=== PATIENT | female | born 2000 | race Caucasian/White ===

== ENCOUNTER 2022-11-21 05:30 | Inpatient (IN) | payer BC, OTHER ==
[2022-11-21 06:27] VITALS: BMI 29.9
[2022-11-21] MEDS: Lactated Ringer's 1,000 ML IV SCH ×2 (07:00→12:00)
[2022-11-21] MEDS ORDERED: Tranexamic Acid 1,000 MG/10 ML VIAL IVP PRN (07:42)
[2022-11-21] MEDS ORDERED: Lidocaine 1% (PF) 30 ML VIAL SC PRN (07:42)
[2022-11-21] MEDS ORDERED: Ibuprofen 800 MG TAB PO PRN (07:42)
[2022-11-21] MEDS ORDERED: Misoprostol 200 MCG TAB PR PRN (07:42)
[2022-11-21] MEDS ORDERED: Ondansetron PF 4 MG/2 ML Vial IVP PRN ×3 (07:42→20:24)
[2022-11-21] MEDS ORDERED: HYDROcodone/Acetaminophen 5/325 mg Tablet PO PRN (07:42)
[2022-11-21] MEDS ORDERED: Acetaminophen 500 MG TAB PO PRN (07:42)
[2022-11-21] MEDS ORDERED: Promethazine HCl 25 MG/ML VIAL IM PRN ×3 (07:42→20:24)
[2022-11-21] MEDS ORDERED: Methylergonovine 0.2 MG/ML VIAL IM PRN (07:42)
[2022-11-21] MEDS ORDERED: fentaNYL 50 mcg/mL 1 mL Vial SLOW IVP PRN (07:42)
[2022-11-21] MEDS ORDERED: Diphenoxylate HCl/Atropine Tablet PO PRN (07:42)
[2022-11-21] MEDS ORDERED: Carboprost 250 MCG/ML AMP IM PRN (07:42)
[2022-11-21] MEDS ORDERED: hydrALAZINE 20 MG/ML VIAL SLOW IVP PRN ×2 (07:42→20:24)
[2022-11-21] MEDS ORDERED: NS w/ Oxytocin 30 units 500 ML IV SCH ×3 (07:45)
[2022-11-21] MEDS ORDERED: NS w/ Oxytocin 30 units 500 ML ONE (07:56)
[2022-11-21 08:10] LABS: Hematocrit 34.2 % (34.9-44.5); Hemoglobin 11.8 g/dL (12.0-15.5); Mean Corpuscular HGB CONC 34.5 g/dL (32.0-36.0); Mean Corpuscular Volume 92.7 fl (81.6-98.3); Mean Platelet Volume 11.1 fl (7.4-10.4); Platelet Count 429 10x3/uL (150-450); Red Blood Cell (RBC) Count 3.69 10x6/uL (3.90-5.03); White Blood Cell (WBC) Count 11.9 10x3/uL (3.5-10.5)
[2022-11-21 08:34] LABS: HBSAg Index 0.26 S/CO (0-0.99); Hep B Surf Ag - L&D Non-Reactive S/CO (NonReactive); Syphilis Antibody Nonreactive (Nonreactive); Syphilis Antibody Index 0.04 S/CO (<1.00 Non-Reactive)
[2022-11-21] MEDS ORDERED: diphenhydrAMINE 50 MG/ML VIAL IVP PRN (08:49)
[2022-11-21] MEDS ORDERED: Acetaminophen 325 MG TAB PO PRN (08:49)
[2022-11-21] MEDS ORDERED: Moisturizing Cream (Eucerin) 113 GM JAR TOP PRN (08:49)
[2022-11-21] MEDS ORDERED: Naloxone HCl 0.4 mg/ml Vial IVP PRN ×2 (08:49)
[2022-11-21] MEDS ORDERED: Lactated Ringer's 500 ML IV PRN (08:49)
[2022-11-21] MEDS ORDERED: ePHEDrine Sulfate 50 MG/10 ML VIAL SLOW IVP PRN (08:49)
[2022-11-21] MEDS ORDERED: fentaNYL 2 mcg/Ropivacaine 0.2% Epidural 100 ML CADD EPIDURAL SCH (09:00)
[2022-11-21] MEDS ORDERED: Communication Order-Pharmacy FS SCH (09:00)
[2022-11-21] MEDS ORDERED: fentaNYL/Ropivacaine Epidural 100 ML ONE (09:19)
[2022-11-21 15:51] LABS: pH (Cord, venous) 7.294 (7.250-7.350)
[2022-11-21] MEDS ORDERED: Boostrix 0.5 ML (Tdap) VIAL (>/=7 yrs of age) IM ONE (20:24)
[2022-11-21] MEDS ORDERED: Lanolin Ointment 7 GM TUBE TOP PRN (20:24)
[2022-11-21] MEDS ORDERED: Milk Of Magnesia 30 ML UDCUP PO PRN (20:24)
[2022-11-21] MEDS ORDERED: Bisacodyl 10 MG SUPP PR PRN (20:24)
[2022-11-21] MEDS ORDERED: diphenhydrAMINE 25 MG CAP PO PRN (20:24)
[2022-11-21] MEDS ORDERED: Benzocaine-Menthol 82.5 ML CAN TOP PRN (20:24)
[2022-11-21] MEDS: Ibuprofen 800 MG TAB PO SCH (23:40)
[2022-11-21] MEDS: Docusate 100 MG CAP PO SCH (23:40)
[2022-11-22] MEDS: Ibuprofen 800 MG TAB PO SCH ×5 (00:32→22:23)
[2022-11-22] MEDS: Ferrous Sulfate 325 MG TAB PO SCH ×2 (07:38→15:00)
[2022-11-22] MEDS: HYDROcodone/Acetaminophen 5/325 mg Tablet PO PRN ×3 (08:10→19:40)
[2022-11-22] MEDS: Docusate 100 MG CAP PO SCH ×2 (08:11→22:23)
[2022-11-22] MEDS: Prenatal Vitamin 1 TAB PO SCH (08:11)
[2022-11-23] MEDS: HYDROcodone/Acetaminophen 5/325 mg Tablet PO PRN ×2 (01:34→11:48)
[2022-11-23] MEDS: Ibuprofen 800 MG TAB PO SCH ×2 (06:25→14:08)
[2022-11-23] MEDS: Ferrous Sulfate 325 MG TAB PO SCH ×2 (07:23→19:14)
[2022-11-23 07:42] VITALS: BP 114/70; TEMP 98.2
[2022-11-23] MEDS: Prenatal Vitamin 1 TAB PO SCH (07:59)
[2022-11-23] MEDS: Docusate 100 MG CAP PO SCH (07:59)
== END 2022-11-23 20:30 | disposition home or self-care (01) | DRG 807 ==
LOC: CSHLD 05:50 → CSHPP 18:45
PROVIDERS: ADMIT Family Medicine; ATTEND Family Medicine
PROC: 10D07Z6 Extraction of Products of Conception, Vacuum, Via Natural or Artificial Opening (ICD-10-PCS; principal; 2022-11-21)
PROC: 10907ZC Drainage of Amniotic Fluid, Therapeutic from Products of Conception, Via Natural or Artificial Opening (ICD-10-PCS; 2022-11-21)
PROC: 0W8NXZZ Division of Female Perineum, External Approach (ICD-10-PCS; 2022-11-21)
DX: O66.0 Obstructed labor due to shoulder dystocia (principal); Z37.0 Single live birth; O69.81X0 Labor and delivery complicated by cord around neck, without compression, not applicable or unspecified; O76 Abnormality in fetal heart rate and rhythm complicating labor and delivery; Z3A.39 39 weeks gestation of pregnancy; Z88.8 Allergy status to other drugs, medicaments and biological substances
CPT/HCPCS: 51702; 82805; 85027; 86780; 86850; 86900; 86901; 87340; J2001; J2590; J7120